=== PATIENT | male | born 1950 | race Caucasian/White ===

== ENCOUNTER 2018-12-02 10:24 | Outpatient (CLI) | payer MEDICARE, OTHER ==
[2018-12-02 17:57] LABS: ALBUMIN 4.4 g/dL (3.2-5.5); CALCIUM 9.4 mg/dL (8.5-10.3); CREATININE 0.9 mg/dL (0.6-1.2); MAGNESIUM 2.4 mg/dL (1.7-2.8); PHOSPHORUS 3.4 mg/dL (2.5-4.6)
== END 2018-12-02 10:25 | disposition home or self-care (01) ==
LOC: LAB.F 10:24
PROVIDERS: ATTEND Internal Medicine
DX: E87.6 Hypokalemia (principal)
CPT/HCPCS: 36415; 80069; 83735

== ENCOUNTER 2020-04-16 13:00 | Outpatient (CLI) | payer MEDICARE, OTHER | END 2020-04-16 23:59 | disposition home or self-care (01) | LOC: COV 13:00 | PROVIDERS: ATTEND Family Medicine | DX: Z01.812 Encounter for preprocedural laboratory examination (principal); H40.1123 Primary open-angle glaucoma, left eye, severe stage; Z20.828 Contact with and (suspected) exposure to other viral communicable diseases ==